=== PATIENT | female | born 1985 | race Caucasian/White ===

== ENCOUNTER → 2025-01-28 | Outpatient (CLI) | payer MEDICAID, SELFPAY ==
--- NOTE | 2025-01-28 16:00 | XR_ITS ---
Examination: Breast ultrasound, unilateral, left complete Date and time of exam: January 28, 2025 1111 hours INDICATIONS: Nipple burning sensation one month, family history breast cancer Technique: Real-time castillo scale ultrasonographic imaging performed left breast including all 4 quadrants as well as nipple retroareolar and axillary region. Findings: No cystic or solid mass IMPRESSION: BI-RADS Category 1: Negative study Consider follow-up diagnostic mammography
== END | disposition home or self-care (01) ==
PROVIDERS: PCP Physician Assistant; Referring Provider Physician Assistant; Visit Provider Physician Assistant
DX: R20.8 Other disturbances of skin sensation (principal); Z80.3 Family history of malignant neoplasm of breast
CPT/HCPCS: 76641